=== PATIENT | male | born 2000 | race Caucasian/White ===

== ENCOUNTER 2019-01-02 21:15 | Emergency (ER) | payer BC ==
[2019-01-02] MEDS ORDERED: Lidocaine 2% PF * 5 ML VIAL INJ ONE (21:17)
--- NOTE | 2019-01-02 21:18 | UC ---
Laceration HPI - HPI Summary HPI Summary: 18 yo male presents with facial laceration. He was playing hockey this evening and went to hit another player and sustained a laceration to his face. The assistant field hockey coach bandaged the area and pt came directly to . Tetanus is UTD. No LOC. Thinks he may have chipped his tooth as well. - History Of Current Complaint Stated Complaint: FACIAL LAC Hx Obtained From: Patient Laceration Location: Face Mechanism Of Injury: Blunt Trauma Severity: Mild Pain Intensity: 3 Pain Scale Used: 0-10 Numeric - Allergies/Home Medications Allergies/Adverse Reactions: Allergies Allergy/AdvReac Type Severity Reaction Status Date / Time No Known Allergies Allergy Verified 01/02/19 21:37 Home Medications: Home Medications NK [No Home Medications Reported] 01/02/19 [History Confirmed 01/02/19] PMH/Surg Hx/FS Hx/Imm Hx - Additional Past Medical History Additional PMH: None - Surgical History Surgical History: None - Family History Known Family History: Positive: Non-Contributory - Social History Occupation: Student Lives: Dormitory/Roommates Alcohol Use: Occasionally Substance Use Type: None Smoking Status (MU): Never Smoked Tobacco Review of Systems All Other Systems Reviewed And Are Negative: No Constitutional: Positive: Negative Skin: Positive: Other - Facial lac Eyes: Positive: Negative ENT: Positive: Negative Respiratory: Positive: Negative Cardiovascular: Positive: Negative Neurological: Positive: Negative Psychological: Positive: Negative Physical Exam - Summary Physical Exam Summary: GENERAL: NAD. WDWN. No pain distress. SKIN: Left philtrum with vertical 7mm linear laceration with 2mm width. Scant active bleeding. 4mm linear laceration to chin. CHEST: No accessory muscle use. Breathing comfortably and in no distress. CV: Pulses intact. Cap refill <2seconds NEURO: Alert. PSYCH: Age appropriate behavior. Triage Information Reviewed: Yes Vital Signs: Vital Signs: Temp Pulse Resp BP Pulse Ox 97.7 F 60 16 117/52 99 01/02/19 21:27 01/02/19 21:27 01/02/19 21:27 01/02/19 21:27 01/02/19 21:27 Vital Signs Reviewed: Yes Dental: Positive: Dental Fracture @ - Tooth 9 with inferomedial chip. Tooth not loose. Negative: Percussion Tenderness @, Gross Decay/Caries @ Laceration Repair - Laceration Repair 1 Description: Linear Laceration Size After Repair: Length (cm) - 0.7, Width (mm) - 0.2 Type Injection: Local Anesthesia Used: 2.0% Lido Cleansing Completed Via Routine Prep: Yes Closure Material: Sutures - #6 Closure Method: Single Layer Suture Of: Skin Suture Type: Prolene - 6-0 Laceration Course/Dx - Course/Dx Course Of Treatment: The procedure was explained to the pt and all questions were answered. A time out was performed, witnessed, and signed. The area was cleansed with sterile saline. 2mL of 2% lidocaine without epi was administered and good anesthetization was achieved. In the usual sterile fashion, TWO 6-0 prolene interrupted sutures were placed to the chin laceration and FOUR 6-0 prolene interrupted sutures were placed to the philtrum laceration. Homeostasis achieved. The wound was bandaged with band-aid. Pt tolerated procedure well. - Diagnosis Provider Diagnosis: Laceration of chin, Laceration of face Discharge ED - Sign-Out/Discharge Documenting (check all that apply): Patient Departure All imaging exams completed and their final reports reviewed: No Studies - Discharge Plan Condition: Stable Disposition: HOME Patient Education Materials: Care For Your Stitches (ED), Laceration (ED) Referrals: No Primary Care Phys,NOPCP [Primary Care Provider] - Additional Instructions: 1) Please keep the area bandage, clean, dry, and intact for the next 24- 48hours. Then change the bandage daily until sutures are removed. 2) If you develop a fever, colored or thick discharge, increased pain or swelling - please call your PCP or return for a wound check. 3) Please return in 4-5 days to have your SIX sutures removed. (Four in lip and two in chin) - Billing Disposition and Condition Condition: STABLE Disposition: Home
[2019-01-02 21:35] VITALS: BP 117/52
== END 2019-01-02 22:07 | disposition home or self-care (01) ==
LOC: UCEAST 21:15
DX: S01.81XA Laceration without foreign body of other part of head, initial encounter (principal); W50.0XXA Accidental hit or strike by another person, initial encounter; Y93.22 Activity, ice hockey; Y92.9 Unspecified place or not applicable
CPT/HCPCS: 12011; 99201; G0463

== ENCOUNTER 2019-01-06 15:27 | Emergency (ER) | payer BC ==
[2019-01-06 15:43] VITALS: BP 105/46
--- NOTE | 2019-01-06 16:28 | UC ---
HPI Wound/Suture Re-check - HPI Summary HPI Summary: PATIENT SEEN HERE IN THE UC 4 DAYS AGO WITH A LACERATION TO HIS UPPER LIP AND CHIN. HAD 4 SUTURES PLACED TO HIS UPPER LIP AND 2 SUTURES PLACED IN HIS CHIN. IS HERE FOR EVALUATION FOR SUTURE REMOVAL. STATES WOUNDS HAVE BEEN HEALING WELL. HE HAS BEEN COVERING THEM IN NEOSPORIN. - History Of Current Complaint Chief Complaint: UCSkin Stated Complaint: SUTURE REMOVAL Time Seen by Provider: 01/06/19 15:53 Hx Obtained From: Patient Onset/Duration: Sudden Onset, Lasting Days, Still Present Severity: Mild Pain Intensity: 0 Pain Scale Used: 0-10 Numeric - Allergies/Home Medications Allergies/Adverse Reactions: Allergies Allergy/AdvReac Type Severity Reaction Status Date / Time No Known Allergies Allergy Verified 01/06/19 15:43 PMH/Surg Hx/FS Hx/Imm Hx Previously Healthy: Yes - Surgical History Surgical History: None - Family History Known Family History: Positive: Non-Contributory - Social History Alcohol Use: Occasionally Substance Use Type: None Smoking Status (MU): Never Smoked Tobacco Review of Systems All Other Systems Reviewed And Are Negative: Yes Constitutional: Positive: Negative Skin: Positive: Other - LACERATIONS HEALING WELL Respiratory: Positive: Negative Cardiovascular: Positive: Negative Gastrointestinal: Positive: Negative Physical Exam Triage Information Reviewed: Yes Appearance: Well-Appearing, No Pain Distress, Well-Nourished Vital Signs: Initial Vital Signs Temp 97.6 F 01/06/19 15:40 Pulse 57 01/06/19 15:40 Resp 16 01/06/19 15:40 BP 105/46 01/06/19 15:40 Pulse Ox 99 01/06/19 15:40 Vital Signs Reviewed: Yes Eyes: Positive: Conjunctiva Clear ENT: Positive: Hearing grossly normal Neck: Positive: Supple Respiratory: Positive: No respiratory distress, No accessory muscle use Cardiovascular: Positive: Pulses Normal Abdomen Description: Positive: Soft Musculoskeletal: Positive: No Edema Neurological: Positive: Alert Psychological: Positive: Age Appropriate Behavior Skin: Negative: Rashes, Other - LACERATION CHIN C/D/I. [address] LACERATION UPPER LIP CLEAN AND INTACT. EDGES WELL APPROXIMATED. COVERED IN OINTMENT. [address] Course/Dx - Course Course Of Treatment: 2 SUTURES REMOVED FROM CHIN WITHOUT DIFFICULTY. LACERATION HEALING WELL. UPPER LIP LACERATION ALSO HEALING WELL HOWEVER SEEMS TOO EARLY TO REMOVE SUTURES TODAY. ADVISED TO RETURN IN 2 OR 3 DAYS FOR REEVALUATION FOR SUTURE REMOVAL. ADVISED NO MORE OINTMENT. - Diagnosis Provider Diagnosis: Encounter for removal of sutures Discharge ED - Sign-Out/Discharge Documenting (check all that apply): Patient Departure All imaging exams completed and their final reports reviewed: No Studies - Discharge Plan Condition: Stable Disposition: HOME Patient Education Materials: Stitches Removal (ED) Referrals: Care [facility] [Outside] - If Needed Additional Instructions: 2 STITCHES REMOVED FROM CHIN TODAY WITHOUT DIFFICULTY. WOUND IS WELL-HEALED. UPPER LIP ALSO HEALING WELL HOWEVER SEEMS A BIT EARLY TO TAKE STITCHES OUT. COME BACK IN 2-3 DAYS FOR SUTURE REMOVAL. NO MORE OINTMENT. - Billing Disposition and Condition Condition: STABLE Disposition: Home
== END 2019-01-06 16:20 | disposition home or self-care (01) ==
LOC: UCEAST 15:27
DX: S01.511D Laceration without foreign body of lip, subsequent encounter (principal); S01.81XD Laceration without foreign body of other part of head, subsequent encounter; X58.XXXD Exposure to other specified factors, subsequent encounter

== ENCOUNTER 2019-01-09 10:57 | Emergency (ER) | payer BC ==
[2019-01-09 11:09] VITALS: BP 106/56
--- NOTE | 2019-01-09 11:22 | UC ---
HPI Wound/Suture Re-check - HPI Summary HPI Summary: PATIENT HERE FOR SUTURE REMOVAL. HAD 4 SUTURES PLACED TO HIS UPPER LIP ONE WEEK AGO AREA AND WOUND IS HEALING WELL. NO REDNESS, TENDERNESS, DRAINAGE. - History Of Current Complaint Chief Complaint: UCLaceration Stated Complaint: SUTURE REMOVAL Time Seen by Provider: 01/09/19 11:18 Hx Obtained From: Patient Onset/Duration: Lasting Days, Still Present Severity: Mild Pain Intensity: 1 Pain Scale Used: 0-10 Numeric - Allergies/Home Medications Allergies/Adverse Reactions: Allergies Allergy/AdvReac Type Severity Reaction Status Date / Time No Known Allergies Allergy Verified 01/09/19 11:09 PMH/Surg Hx/FS Hx/Imm Hx Previously Healthy: Yes - Surgical History Surgical History: None - Family History Known Family History: Positive: Non-Contributory - Social History Alcohol Use: Occasionally Substance Use Type: None Smoking Status (MU): Never Smoked Tobacco Review of Systems All Other Systems Reviewed And Are Negative: Yes Constitutional: Positive: Negative Skin: Positive: Other - UPPER LIP LAC Respiratory: Positive: Negative Cardiovascular: Positive: Negative Gastrointestinal: Positive: Negative Physical Exam Triage Information Reviewed: Yes Appearance: Well-Appearing, No Pain Distress, Well-Nourished Vital Signs: Initial Vital Signs Temp 97.9 F 01/09/19 11:07 Pulse 52 01/09/19 11:07 Resp 16 01/09/19 11:07 BP 106/56 01/09/19 11:07 Pulse Ox 100 01/09/19 11:07 Vital Signs Reviewed: Yes Eyes: Positive: Conjunctiva Clear ENT: Positive: Hearing grossly normal Neck: Positive: Supple Respiratory: Positive: No respiratory distress, No accessory muscle use Cardiovascular: Positive: Pulses Normal Abdomen Description: Positive: Soft Musculoskeletal: Positive: No Edema Neurological: Positive: Alert Psychological: Positive: Age Appropriate Behavior Skin: Positive: Other - UPPER LIP LACERATION C/D/I. [address] Course/Dx - Course Course Of Treatment: 4 SUTURES REMOVED TODAY WITHOUT DIFFICULTY. SKIN EDGES ARE WELL APPROXIMATED AND THE WOUND HAS HEALED NICELY. ANTICIPATORY GUIDANCE PROVIDED. FOLLOW-UP IF NEEDED. - Diagnosis Provider Diagnosis: Visit for suture removal Discharge ED - Sign-Out/Discharge Documenting (check all that apply): Patient Departure All imaging exams completed and their final reports reviewed: No Studies - Discharge Plan Condition: Stable Disposition: HOME Patient Education Materials: Stitches Removal (ED) Referrals: [facility] [Outside] - If Needed Additional Instructions: 4 SUTURES REMOVED FROM YOUR UPPER LIP WITHOUT DIFFICULTY. BE AWARE THAT SCAR TISSUE IS MORE SENSITIVE TO UV RAYS SO TAKE APPROPRIATE SUN PRECAUTIONS. BE CAUTIOUS WITH THE AREA THE SKIN WILL STILL BE WEAK FOR A FEW WEEKS. - Billing Disposition and Condition Condition: STABLE Disposition: Home
--- NOTE | 2019-01-09 11:38 | UC ---
HPI Wound/Suture Re-check - History Of Current Complaint Chief Complaint: UCLaceration Stated Complaint: SUTURE REMOVAL Time Seen by Provider: 01/09/19 11:18 Pain Intensity: 1 - Allergies/Home Medications Allergies/Adverse Reactions: Allergies Allergy/AdvReac Type Severity Reaction Status Date / Time No Known Allergies Allergy Verified 01/09/19 11:09 PMH/Surg Hx/FS Hx/Imm Hx - Surgical History Surgical History: None - Family History Known Family History: Positive: Non-Contributory - Social History Alcohol Use: Occasionally Substance Use Type: None Smoking Status (MU): Never Smoked Tobacco Physical Exam Vital Signs: Initial Vital Signs Temp 97.9 F 01/09/19 11:07 Pulse 52 01/09/19 11:07 Resp 16 01/09/19 11:07 BP 106/56 01/09/19 11:07 Pulse Ox 100 01/09/19 11:07 Discharge ED - Discharge Plan Condition: Stable Disposition: HOME Patient Education Materials: Stitches Removal (ED) Referrals: [facility] [Outside] - If Needed Additional Instructions: 4 SUTURES REMOVED FROM YOUR UPPER LIP WITHOUT DIFFICULTY. BE AWARE THAT SCAR TISSUE IS MORE SENSITIVE TO UV RAYS SO TAKE APPROPRIATE SUN PRECAUTIONS. BE CAUTIOUS WITH THE AREA THE SKIN WILL STILL BE WEAK FOR A FEW WEEKS. - Billing Disposition and Condition Condition: STABLE Disposition: Home
== END 2019-01-09 11:47 | disposition home or self-care (01) ==
LOC: UCEAST 10:57
DX: S01.511D Laceration without foreign body of lip, subsequent encounter (principal); X58.XXXD Exposure to other specified factors, subsequent encounter